=== PATIENT | male | born 1960 | race Caucasian/White ===

== ENCOUNTER 2019-12-03 18:25 | Emergency (ER) | payer OTHER ==
[~2019-12-03] VITALS: Ht 175.3 cm; Wt 112.4 kg
[2019-12-03 19:57] LABS: BASOPHILS # (AUTO) 0.06 x10^3/uL (0-0.1); BASOPHILS % (AUTO) 1 % (0-1); EOSINOPHILS # (AUTO) 0.03 x10^3/uL (0-0.4); EOSINOPHILS % (AUTO) 0 % (1-7); LYMPHOCYTES # (AUTO) 2.31 x10^3/uL (1-3.4); LYMPHOCYTES % (AUTO) 24 % (22-44); MD NO; MEAN CORPUSCULAR HEMOGLOBIN 31.3 pg (27.5-34.5); MEAN CORPUSCULAR HGB CONC 33.9 g/dL (33.2-36.2); MEAN CORPUSCULAR VOLUME 92.5 fL (81-97); MEAN PLATELET VOLUME 8.1 fL (7.4-10.4); MONOCYTES % (AUTO) 6 % (2-9); NEUTROPHILS # (AUTO) 6.59 x10^3/uL (1.8-6.8); NEUTROPHILS % (AUTO) 69 % (42-75); PLATELET COUNT 202 x10^3/uL (130-400); RED BLOOD COUNT 5.58 x10^6/uL (4.38-5.82); RED CELL DISTRIBUTION WIDTH 13.1 % (9.4-14.8)
[2019-12-03 20:06] LABS: ALANINE AMINOTRANSFERASE 126 U/L (12-78); ALBUMIN 4.3 g/dL (3.4-5.0); ANION GAP 8 mmol/L (5-15); CALCIUM 9.5 mg/dL (8.5-10.1); CHLORIDE 111 mmol/L (98-107); CREATININE 0.93 mg/dL (0.7-1.3)
[2019-12-03 20:10] LABS: ALKALINE PHOSPHATASE 67 U/L (45-117); BILIRUBIN,TOTAL 0.7 mg/dL (0.2-1.0); TOTAL PROTEIN 8.1 g/dL (6.4-8.2); TROPONIN I 0.031 ng/mL (0.000-0.045)
[2019-12-03] MEDS ORDERED: SODIUM CHLORIDE 0.9% 1,000 ML IV ONE (21:22)
--- NOTE | 2019-12-03 21:25 | NUR ---
THIS IS A 59 YO M W/ C/O DIZZINESS AND "SPINS" SINCE SUNDAY. WORSENS W/ HEAD MOVEMENT. DENIES CP/SOB. BRADYCARDIC, NADN. RESPIRATIONS EVEN AND UNLABORED. PT RESTING ON GURNEY W/ FAMILY AT BEDSIDE. CALL LIGHT IN REACH. DENIES FURTHER NEEDS AT THIS TIME.
[2019-12-03] MEDS ORDERED: SODIUM CHLORIDE FLUSH 10ML SYR IVF ONE (21:30)
[2019-12-03] MEDS ORDERED: MECLIZINE CHEWABLE 25 MG TAB PO ONE (21:30)
[2019-12-03] MEDS ORDERED: MECLIZINE CHEWABLE 25 MG TAB ONE (21:40)
--- NOTE | 2019-12-03 21:43 | NUR ---
PT TO RAD
--- NOTE | 2019-12-03 21:48 | NUR ---
ORTHOSTATIC VITALS GIVEN TO
[2019-12-03] MEDS ORDERED: OMNIPAQUE 350 MG/ML, 100ML BOTTLE ONE (21:56)
[2019-12-03 22:06] VITALS: BP 159/86
--- NOTE | 2019-12-03 22:07 | NUR ---
Report from Seema BOSE. Pt medicated per MAR, spouse at bedside, side rails up and call light within reach.
[2019-12-03] MEDS ORDERED: ASPIRIN 81 MG TABLET CHEW ONE (22:48)
--- NOTE | 2019-12-03 22:52 | NUR ---
Aspirin given per MAR, pt denies dizziness at this time.
[2019-12-03] MEDS ORDERED: ASPIRIN 81 MG TABLET CHEW PO ONE (23:00)
== END 2019-12-03 23:08 | disposition home or self-care (01) ==
LOC: ED 22:30
DX: R42 Dizziness and giddiness (principal)
CPT/HCPCS: 36415; 70450; 70496; 70498; 71045; 80053; 84484; 85025; 93005; 96360; 99284; J7030; Q9967